=== PATIENT | male | born 1940 | race Two or more races ===

== ENCOUNTER 2024-11-26 05:09 | Emergency (ER) | payer OTHER, SELFPAY ==
[2024-11-26 05:15] VITALS: BP 124/62; BP 169/92; PULSE 74; PULSE 89; RESP 17; TEMP 37.1; O2SAT 98; O2SAT 99; BMI 22.6
--- NOTE | 2024-11-26 05:28 | ED_ITS ---
HPI - General Adult General Chief complaint: Altered Mental Status Stated complaint: ams lost Time Seen by Provider: 11/26/24 05:15 Source: EMS Mode of arrival: EMS Limitations: other History of Present Illness ED Provider: Dr. Karon Rivera HPI narrative: Patient comes to the emergency room via ambulance. Patient walked into [facility] in [place]. Patient was wandering around his neighborhood and he got lost. They called EMS and they brought him to emergency room. Patient's seems to have history of dementia. Patient has no complaints, states he feels well. Patient remembers the name of his sister but does not know what her phone number is. EMS found in his wallet his city driver's license. According to EMS, police department is going to the patient's residence to see if anyone answers the door. Also, here in the emergency room, we found a small health care proxy forearm, stating that the patient is a [employer] and patient is not to receive any blood, also, there is a phone number of a lady by the name of Natalie Sandhu ([phone]) and secondary contact Koby Sandhu ([phone]). According to the patient, Natalie is his sister. However, states that Koby is her daughter's . Unclear if Natalie is the patient's sister versus daughter. Related Data Allergies Allergy/AdvReac Type Severity Reaction Status Date / Time Unable to Assess Allergy Verified 11/26/24 05:22 Review of Systems Review of Systems: Constitutional : No Weight loss, No Fever, No Chills, No Night Sweats, No Fatigue, No Malaise ENT/Mouth : No Hearing loss, No Ear Pain, No Nasal Congestion, No Sinus Pain, No Hoarseness, No sore throat, No Rhinorrhea, No Swallowing Difficulty Eyes: No Eye Pain, No Swelling, No Redness, No Foreign Body, No Discharge, No Vision Changes Cardiovascular : No Chest Pain, No SOB, No Dyspnea on Exertion, No Orthopnea, No Edema, No Palpitations Respiratory : No Cough, No Sputum, No Wheezing, No Smoke Exposure, No Dyspnea Gastrointestinal : No Nausea, No Vomiting, No Diarrhea, No Constipation, No abdominal Pain, No Hematochezia, No Melena Genitourinary : no irregular bleeding, No Dysuria, No Urinary Frequency, No Hematuria, No Urinary Incontinence, No Urgency, No Flank Pain, No Urinary Flow Changes, No Hesitancy Musculoskeletal : No joint pain, No Myalgias, No Joint Swelling Skin : No Skin Lesions, No rash Neuro : No Weakness, No Numbness, No Paresthesias, No Loss of Consciousness, No Dizziness, No Headache Psych : No Anxiety/Panic, No Depression, No SI/HI/AH/VH, No Social Issues, Heme/Lymph: No Bruising, No Bleeding,No Lymphadenopathy Endocrine : No Polyuria, No Polydipsia, No Temperature Intolerance [facility] Past Medical History Medical History (Updated 11/26/24 @ 05:38 by Karon Rivera MD) Dementia Social History Social History Do you have a plan to hurt others: No Plan Physical Exam ED Vital Signs: Vital Signs - 24 hr 11/26/24 05:15 Temperature 98.7 F Pulse Rate 89 Respiratory Rate 17 Blood Pressure 169/92 H Pulse Oximetry 99 Oxygen Delivery Method Room Air BMI result Body Mass Index 22.6 Const Other: Appearance: Alert. Oriented x1. No acute distress. Eyes: Pupils equal, round and reactive to light. ENT: Pharynx normal. Neck: Normal inspection. Neck supple. No lymph nodes noted. No crepitus CVS: Normal heart rate and rhythm. Pulses normal. Normal S1 and S2 Respiratory: No respiratory distress. Breath sounds normal. No Wheezing. No rales Abdomen: Soft and nontender. No rigidity. No distention. Skin: Skin warm and dry. Normal skin color. Normal skin turgor. Extremities: No lower extremity edema. No Lacerations. No Rash Neuro: Oriented X 1. No motor deficit. No sensory deficit. Moving all extremities. No slurred speech. CN 2 through 12 grossly intact Psych: calm, cooperative, normal affect Course Course Course Narrative: Patient is well-appearing, does not seem to be hurt, clean Urinalysis pending At this time, we will hold off on any labs. I tried calling patient's contacts, Natalie Sandhu and Koby Sandhu, neither 1 picked up the phone. We will try again. Patient is calm, cooperative, has no complaints. Watching TV and about to eat some snacks I was able to get in touch with the patient's daughter Natalie Sandhu, who is currently in [place]. She informed me that her sister Mamta Key ([phone]) is here in [place] and the patient is staying with her. I was able to get in touch with Mamta who is the patient's other daughter. She was very distressed when I informed her that her that was here in the hospital. She was completely unaware that he wandered out of the house. She is on the way to the hospital to pick him up. I informed the patient's daughter that her that is well-appearing and is safe. The daughters confirmed that the patient has history of dementia. Discharge Plan Discharge Clinical Impression: Dementia Patient Disposition: Home, Self-Care Instructions: Dementia (ED) Additional Instructions: Please follow-up with your primary care physician tomorrow. If you have any worsening or new symptoms, please return to the emergency room or call 911
[2024-11-26 06:12] VITALS: BP 156/83; PULSE 84; RESP 16; TEMP 36.9; O2SAT 97
--- NOTE | 2024-11-26 06:13 | MHC.EDTECH ---
Patient was biba ,vitals taken ,Patient had snacks ,Patient daughter here to take him home .
[2024-11-26 06:20] VITALS: BP 156/83; PULSE 84; RESP 16; TEMP 36.9; O2SAT 97
== END 2024-11-26 06:25 | disposition home or self-care (01) ==
PROVIDERS: Emergency Provider Emergency Medicine
DX: R41.0 Disorientation, unspecified (principal); F03.90 Unspecified dementia, unspecified severity, without behavioral disturbance, psychotic disturbance, mood disturbance, and anxiety
CPT/HCPCS: 99283; 99284

== ENCOUNTER 2024-12-01 09:53 | Outpatient (REF) | payer OTHER, SELFPAY ==
--- OUTSIDE RECORDS SUMMARY | 2024-12-01 10:29 | XMS_ITS | Data [employer] ---
Author Organization [employer] [place] [facility] Address [address] [place] [id number] Care Team Providers Care Coagulant Dipper Name Role Phone HIM CCA Referring Provider Assessment Encounter Date Assessment Date Assessment LastModified by Organization Details LastModified Time 09/23/2022 09/23/2022 I provided real -time medical direction via phone for this encounter, and was available for additional phone based assistance as needed. I have reviewed and agree with the Assessment and Plan as documented by the Drophammer Operator. Patient given the opportunity to ask questions. See history provided above. See pictures provided by air hole driller who is in the patient's home. Clearly demarcated area of questionable cellulitis. There appears to be some vannesa pus drainage per air hole driller exam. It is unclear from pictures how deep the wound is and air hole driller is unable to gauge depth of the patient's wound. His daughter is been doing excellent job with taking care of the wound and it does appear very clean and dry. I will prescribe Keflex and have wound care start services in regards to dressing applications. He will continue to keep the leg elevated and should there be any worsening of the erythema I have asked him and his family to call his primary care provider immediately. Not available 09/23/2022 20:02:20 08/11/2023 08/11/2023 As noted, we wer e called to see this patient regarding concerns of COVID. Evaluation in the field was performed by my air hole driller colleague, as noted above, I provided real-time direction and supervision for this visit. The evaluation revealed the patient was seen by Josue yesterday and was stable, diagnosed with COVID, started on paxlovid. Today, seems lethargic, less alert. Vitals notable for hypotension Exam notable for limited interaction, just watching TV. Impression: hypotension, possible sepsis in 82yo man with recent covid diagnosis Plan: 1L IVF and 1g CTX now, send to ED We discussed the situation and I recommended referral to the emergency department. This was based on hypotension camilajuan alberto Not available 08/11/2023 16:38:20 11/23/2024 11/23/2024 I provided real -time medical direction via phone for this encounter and was available for additional phone-based assistance as needed. I have reviewed and agree with the Assessment and Plan as documented by the Drophammer Operator. Patient given the opportunity to ask questions. Our service contacted for an assessment of: Fall As per above, patient initiated a shower today which she normally has helped for and had a fall. He denies head strike. He did hit his back and has to abrasions. His daughter called to have him evaluated. He denies any pain currently. He denies shortness of breath, chest pain, dyspnea on exertion. He also denies any syncope or near-syncope and he had no prodrome. Per air hole driller on the scene, Vital signs are stable and the patient is afebrile. Patient is not orthostatic. Please see uploaded pictures. Impression: Status post fall with abrasions. Appears to be mechanical and there was no head strike. Plan: Reassurance given. Patient currently denies pain. There is no evidence it is related to blood pressure or orthostatics. Volume status reassuring. Red flags discussed. Allergies: Reviewed PCP f/u: We discussed the diagnostic uncertainty of home visits and the risk associated with this. In this case, the patient and I felt this to be an acceptable and reasonable amount of risk given the benefit of avoiding an ED visit. We discussed the need to seek care urgently/emergentl y in the setting of any new or worsening serious symptoms, particularly fever chills lightheadedness altered mental status Not available 11/23/2024 21:46:53 Plan of Treatment Reminders Order Date Submit Date Provider Last Modified By Organization Details Last Modified Time Details Appointments None recorded. Lab None recorded. Referral wound care referral 2022 023 RACHNA Not available 05:01:19 Procedures None recorded. Surgeries None recorded. Imaging None recorded. Medication Orders lactated Ringers intravenous solution [address] [id number], [address], [place], [id number], 4 14:47:46 ceftriaxone 1 gram intravenous solution 2023 024 dinoidjuan alberto [facility] #[id number], [address], [place], [id number], 4 14:47:46 Paxlovid 300 mg (150 mg x 2)-100 mg tablets in a dose pack 2023 024 [facility] #[id number], [address], [place], [id number], 4 15:41:40 cephalexin 500 mg tablet 2022 023 [facility] #[id number], [address], [place], [id number], 3 19:59:51 Patient TargetsNo targets recorded. Patient InstructionsNo instructions recorded. Reason for Referral Referring Physician: Zarina yee, Urgent Care, null Encounter Date: 09/23/2022 Medical Equipment None Reported. Allergies No known drug allergies Medications Name Sig Start Date Stop Date Status Note LastModified by Organization Details LastModified Time atorvastatin 10 mg tablet TAKE 1 TABLET BY MOUTH DAILY active Not Available Not Available Not Available lisinopril 20 mg tablet TAKE 1 TABLET BY MOUTH EVERY DAY active Not Available Not Available No t Available aspirin 81 mg tablet,delay ed release TAKE 1 TABLET BY MOUTH EVERY DAY active Not Available Not Available No t Available pantoprazole 20 mg tablet,delay ed release TAKE 1 TABLET BY MOUTH TWICE DAILY active Not Available Not Available No t Available famotidine 20 mg tablet TAKE 1 TABLET BY MOUTH TWICE DAILY active Not Available Not Available No t Available tamsulosin 0.4 mg capsule TAKE 1 CAPSULE BY MOUTH EVERY DAY 30 MINUTES AFTER THE SAME MEAL active Not Available Not Available No t Available cephalexin 500 mg capsule TAKE 1 CAPSULE BY MOUTH EVERY 6 HOURS FOR 10 DAYS DIRECTED active Not Available Not Available No t Available cephalexin 500 mg tablet Take 1 tablet every 6 hours by oral route as directed for 10 days. 2022 active Not Available Not Available Not Avai lable naproxen 500 mg tablet TAKE 1 TABLET BY MOUTH TWICE DAILY WITH MEALS active Not Available Not Available No t Available cyclobenzapr ine 5 mg tablet TAKE 1 TABLET BY MOUTH THREE TIMES DAILY NEEDED FOR MUSCLE SPASMS active Not Available Not Available No t Available diclofenac 1 % topical gel APPLY 4 GRAMS TOPICALLY FIVE TIMES DAILY active Not Available Not Available No t Available Metamucil Fiber (aspartame) 3.4 gram oral powder packet MIX AND DRINK 1 PACKET BY MOUTH 2 TIMES A DAY DIRECTED. active Not Available Not Available No t Available Stimulant Laxative Plus 8.6 mg-50 mg tablet TAKE 1 TABLET BY MOUTH 2 TIMES NEEDED FOR CONSTIPATIO N. active Not Available Not Available No t Available Paxlovid 300 mg (150 mg x 2)-100 mg tablets in a dose pack TK 2 NIRMATRELVI R TS AND 1 RITONAVIR T TOGETHER PO BID FOR 5 DAYS active Not Available Not Available No t Available Vitals Date Recorded Respiratory rate Body temperature Oxygen saturation Oxygen saturation in Arterial blood by Pulse oximetry Heart rate Systolic blood pressure Diastolic blood pressure Provider Name and Address Organization Details Last Updated DateTime 4 18 /min 98.6 [degF] 97 % 97 % 85 /min 150 mm[Hg] 90 mm[Hg] Not Available [facility] 4 15:31:00 Date Recorded Respiratory rate Heart rate Body weight Body height Body temperature Oxygen saturation Oxygen saturation in Arterial blood by Pulse oximetry Systolic blood pressure Diastolic blood pressure Systolic blood pressure Diastolic blood pressure Provider Name and Address Organization Details Last Updated DateTime 4 16 /min 76 /min 43011.6 8 g 165.1 cm 98.2 [degF] 96 % 96 % 88 mm[Hg] 56 mm[Hg] 106 mm[Hg] 69 mm[Hg] Not Available [facility] 4 17:58:48 Date Recorded Body temperature Oxygen saturation Oxygen saturation in Arterial blood by Pulse oximetry Body weight Respiratory rate Heart rate Systolic blood pressure Diastolic blood pressure Provider Name and Address Organization Details Last Updated DateTime 3 98 [degF] 97 % 97 % 33002.6 4 g 16 /min 84 /min 156 mm[Hg] 86 mm[Hg] Not Available [facility] 3 19:55:17 Date Recorded Heart rate Respiratory rate Body temperature Oxygen saturation Oxygen saturation in Arterial blood by Pulse oximetry Systolic blood pressure Diastolic blood pressure Provider Name and Address Organization Details Last Updated DateTime 5 63 /min 18 /min 97.8 [degF] 98 % 98 % 129 mm[Hg] 86 mm[Hg] Not Available [facility] 5 17:08:50 Date Recorded Heart rate Respiratory rate Body temperature Body weight Oxygen saturation Oxygen saturation in Arterial blood by Pulse oximetry Systolic blood pressure Diastolic blood pressure Provider Name and Address Organization Details Last Updated DateTime 4 72 /min 16 /min 98.2 [degF] 90907.8 g 98 % 98 % 144 mm[Hg] 84 mm[Hg] Not Available [facility] 4 16:41:30 Social History None recorded. Functional Status None recorded. Mental Status None recorded. Family History Nothing Reported. Medical History No medical history recorded. Past Encounters Encounter ID Performer Location Encounter Start Date Encounter Closed Date Diagnosis/Indication Diagnosis SNOMED-CT Code Diagnosis ICD10 Code Diagnosis Note [id number] Lluvia Sal MD [facility] [address] [place] [id number] 07/09/2022 11:31:27 07/11/2022 12:24:19 Influenza-like symptoms [id number] R68.89 81 year old male, recently diagnosed with influenza last week, being evaluated for ongoing symptoms. Patient reports continued cough and low appetite, with reduced PO intake, no significan t respirator y symptoms. Patient without new fevers. Exam notable for normal vital signs, dry mucus membranes, course crackles on lung exam, and normal mental status. Etiology consistent with ongoing recovery from influenza, low suspicion for superimpos ed bacterial infection or new COVID infection given no new symptoms and absent fevers since symptoms initially began last week. Urged to continue supportive care with OTC products and PO fluids as tolerated. Given reduced PO intake, patient and family interested IV fluids - while vital signs do not suggest dehydratio n and patient is not on a beta sherwin, 500 cc bolus given per patient request. Continue to monitor symptoms and FU if new fever or unable to tolerate PO fluids in coming days. [id number] Zarina Cagle MD [facility] [address] [place] [id number] 09/23/2022 19:55:03 09/25/2022 09:53:02 Cellulitis of lower limb [id number] L03.119 [id number] Sagar Angel MD [facility] [address] [place] [phone] 08/10/2023 15:30:57 08/11/2023 13:14:08 COVID-19 [id number] U07.1 This 82-year-ol d male was diagnosed with COVID-19 today. He doesn't have any contraindi cations to using Paxlovid. I discussed treatment including Paxlovid which was called to his pharmacy. He will follow-up with his PCP. The patient agreed with this plan. RENE NEGRETE MD [facility] [address] [place] [phone] 08/11/2023 14:18:37 08/12/2023 10:34:46 Hypotensive episode [id number] I95.9 [id number] RYAN KLEIN MD [facility] [address] [place] [id number] 04/15/2024 16:41:19 04/15/2024 17:39:22 Contusion of left knee [id number] S80.02XA Evaluation in the field was performed by my air hole driller colleague, as noted above, I provided real-time direction and supervisio n for this visit. The evaluation revealed an 83-year-ol d male who fell while sitting down and twisting to the side. He denies dizziness or lightheade dness, indicating a mechanical fall. His daughter is concerned about his left knee, which appears red but not swollen. He did not hit his head and is not on blood thinners. The daughter has not applied ice or heat, as she is concerned about his varicose veins. The patient denies chest pain, shortness of breath, nausea, vomiting, or diarrhea. He is tolerating oral intake well, and his mental status is at baseline. Vital signs are stable.The left knee has full range of motion , with no ecchymosis or abrasions. There is mild redness and a contusion on the left kneecap.Al lergies were reviewed. Impression :Contusion of the left knee Plan:-Cold compresses recommende d to help prevent swelling.- May use Tylenol 1000 mg every 8 hours as needed.-Re d flags were discussed with the daughter. Primary care, consider__ _ Dispositio n: We discussed the diagnostic uncertaint y of home visits and the risk associated with this. In this case, the patient and I felt this to be an acceptable and reasonable amount of risk given the benefit of avoiding an ED visit. We discussed the need to seek care urgently/e mergently in the setting of any new or worsening serious symptoms, particular ly left knee pain especially with ambulation , inability to bear weight, swelling of the knee, weakness fever, chill, CP, SOB or any other concerns. [id number] Zarina Cagle MD [facility] [address] [place] [phone] 11/23/2024 17:08:46 11/24/2024 07:04:45 History of fall [id number] Z91.81 Health Concerns Section Related Observation LastModified by Organization Detai ls LastModified Time None Recorded Concern Status LastModified by Organization Details LastModified Time None Recorded Advance Directives Directive None Recorded Payers Insurance Date Sequence Insurance Name Policy Number Policy Wahl Covered Member ID Wahl Member ID Guarantor Name 08/10/2023 1 [facility] - DOS PRIOR TO 2022 - DUAL ELIGIBLE (MEDICARE REPLACEMENT/ADV ANTAGE - HMO) Amos Thompson [id number] Amos Thompson 11/23/2024 1 [facility] - DOS ON OR AFTER 2022 - DUAL ELIGIBLE - CUSTODIAL OPTIONS AND ONE CARE (MEDICARE REPLACEMENT/ADV ANTAGE - HMO) Amos Thompson [id number] Amos Thompson Notes Date Note Type Note Provider Name and Address Organization Details Recorded Time 09/23/2022 text/html [facility] Nursing Assessment: Reason For Request: Leg wound Chief Complaints: Wound Care PMH: Hypertension Allergies: Unknown Comments: Members daughter calling to place a referral, member identified via /name. Per daughter member had a scratch on his leg last week, she was cleansing and putting a band aide. She had ran out of band aides, she had some gauze and medical tape, however, some of the tape adhered to healthy skin. When member went to remove in the next morning, the tape took the good skin off. Per daughter scratch is healed, but the area where the tape removed skin is open, draining yellow fluid, there is also erythema around it, denies warmth or swelling to leg. Denies fever/chills. Would like to have leg assessed. ..................... ..................... ..................... ..................... ..................... ..................... ............... Drophammer Operator Note From : pt presents with pain and wound in right lower extremity . daughter on scene states the pt had a cut on his leg that she used gauze and medical tape to cover up, when the gauze and tape was removed the tape had taken some of the pt's skin off, leaving a new wound. daughter has been trying to keep the wound clean with hydrogen peroxide and bandaids but it has not healed. Daughter has left the wound in the open for the past three days to dry it out as it kept looking wet for the past week. wound is dark in color with pus draining from it, redness around the wound almost circumferencing the leg. wound is not warm to the touch. pt denies f/n/v/d pt has no other complaints to report. pictures taken of the wound and shared with [facility] [facility] [place] and abx sent to pharmacy for pt as well as a referral for wound care. Written by Diogenes Willams ..................... ..................... ..................... ..................... ..................... ..................... ............... Disposition: Fulfilled Zarina Cagle MD [address] [facility], [place], [phone], [employer] 09/23/2022 20:02:40 08/10/2023 text/html [facility] Nurse Triage Notes (Rangel Hobbs): Chief Complaints: URI PMH: Hypertension Allergies: Unknown Comments: Mushroom Farmer verified the member's name//address and phone number - Education provided on the response time and the member was advised to monitor reported s/s and seek emergency treatment if needed. CG reports the member is feeling unwell and tested Positive for COVID this AM - Cough/cold and congestion - Denies fever and SOB - Denies N/V. Caretakers are positive as well Sagar Angel MD [address] [facility],[address], [place], [phone], [employer] 08/10/2023 15:41:55 08/11/2023 text/html [facility] Nurse Triage Notes (Rangel Hobbs): Reason For Request: Was seen by [facility] Yesterday tested positive for covid>weakness, does not want to drink anything and fear of dehydration Chief Complaints: Dehydration, Weakness/Lethargy PMH: Hypertension Allergies: No Known Comments: Mushroom Farmer verified the member's name//address and phone number - Education provided on the response time and the member was advised to monitor reported s/s and seek emergency treatment if needed. Member was seen by [facility] yesterday and tested positive for COVID - Member s/s remain the same and continues to feel weak - Decreased PO intake - CG is concerned about dehydration - Wellness check requested ..................... ..................... ..................... ..................... ..................... ..................... ............... Drophammer Operator Note From Anibal Spencer: [facility] visit for male patient who tested positive for COVID yesterday. Pt's daughter and caregiver called today concerned about possible dehydration given poor PO intake since yesterday. Pt presents conscious and alert sitting in recliner at home watching television. Daughter reports pt was started on paxlovid this morning, and has been taking that in addition to tylenol and mucinex. Vital signs taken with pt noted to be hypotensive. Daughter states patients blood pressure is normally high and hasn't even taken his lisinopril yet today. Daughter states pt also seems more weak than normal, in addition to increased confusion on top of baseline dementia/confusion. Consulted with [facility] Dr. Kam who stated pt will likely need to be seen in ED but can start with 500 cc fluid bolus and then recheck of pressures. IV established and fluid bolus given with small improvement. Spoke with Dr. Kam again who said to give another 500 cc of lactated ringers in addition to 1 gram of ceftriaxone, both administered on scene. Dr. Kam still wanted pt seen in ED so spoke with daughter who agreed. 911 called with [facility] B[facility] unit arriving on scene. Pt extricated with smart[facility] medic assuming care throughout transport. Pt brought to [facility] ED Delta [facility] room 3. Report given to RN Juliette Lake. Care transferred to [facility]. [facility] Medication Orders: lactated Ringers intravenous solution: Administered ceftriaxone 1 gram intravenous solution: Administered ..................... ..................... ..................... ..................... ..................... ..................... ............... Disposition: Fulfilled RENE NEGRETE MD [address] [facility], [place], [phone], [employer] 08/11/2023 18:24:14 04/15/2024 text/html [facility] Nurse Triage Notes (Rohan Eunice): Reason For Request: Pt's Daughter aris reporting a fall Chief Complaints: Falls PMH: Hypertension, Other Allergies: No Known Comments: Mushroom Farmer verified the member's name//address and phone number. Member is a 83 yr old male PMH >HTN/ mild dementia / HLD / ACID reflex Allergies >NKDA Pt's daughter called , he fell while he was sitting down and twisted to the side. She is concerned with his left knee, as the area is red, not swollen. He did not hit his head, she is aware we do not offer xrays but still wanted the visit. She has not put ice or heat on it as she is concerned that he has varicose veins Education provided on the response time and the member was advised to monitor reported s/s and seek emergency treatment if needed ..................... ..................... ..................... ..................... ..................... ..................... ............... Drophammer Operator Note From Durga Newman: Pt daughter wanted pt left knee assessed after a fall earlier today. daughter sts patient went to sit down in shower chair and fell hitting his left knee. Denies contusions abrasions. or lacerations. Denies Head neck or back pain or injury. Denies headache, dizziness, CP,SOB, Abdominal pain or NVD. Baseline vitals assessed, WNL. Afebrile. Pupils equal round and reactive. Left knee assessed, No edema, redness, or trauma visible. Pt had full ROM. [facility] contacted and advised ice and Tylenol if needed for pain. Education provided on signs indicating the ER. ..................... ..................... ..................... ..................... ..................... ..................... ............... Disposition: Emily RYAN KLEIN MD [address] [facility],[address], [place], [phone], [employer] 04/15/2024 17:15:29 11/23/2024 text/html [facility] Nurse Triage Notes (Hattie Matthews): Reason For Request: Patient fell, no pain but wants checked out. Denies: Falls with head strike and LOC Falls from a standing position, no LOC, patient is amnestic to the event Falls with isolated injury and deformity noted to limb Falls with inability to move post fall Cool extremities after fall or injury Chief Complaints: Falls PMH: Hypertension, Hyperlipidemia PMH Reviewed at 11/23/2024:18 Allergies Reviewed at 11/23/2024:18 Comments: 83 y.o male complains of Falls Patients daughter calling in to place a referral. Patient fell about 30 minutes ago in the shower, refusing ED. Patient denies head strike, no LOC and does not take any blood thinners. Daughter denies any bumps, bruising or swelling any where, he is able to move all extremities. He has no confusion. Her concern is his back, he has a streak, where she think the water spout gave him like a rug burn . She would like him evaluated. I provided information on the mobile health provider response time and advised the patient and/or caregiver to monitor reported signs and symptoms. I discussed the warning signs of when to seek emergency care. ..................... ..................... ..................... ..................... ..................... ..................... ............... Drophammer Operator Note From Kelly Ml: Sent to a call for a pt who fell. [facility] arrives on scene, pt is alert and confused at baseline. Pt's daughter states pt had a fall approx 1-1.5hrs ago while in bath tub. Daughter states pt was sitting in shower chair and fell, hitting back on shower faucet. Daughter denies head strike/loc. Daughter states she wasn't in bathroom at time of fall because pt prefers to shower alone. Daughter states she went in the moment she heard the fall. Pt has no complaints. Daughter states pt has wilkinson on back from fall, but pt sometimes has difficulty expressing pain. Picture of right side affected back: uploaded to [facility]. Pt denies any pain. Pt was given Tylenol 1gm PO prior to visit. Pt's daughter states she just wanted pt's fall and evaluation on record. BP:129/86, P:63, RR:18, SpO2:98% RA, T:97.8; Neuro exam: neg; Head: unremarkable; Lung sounds: clear bilaterally; Abdomen: soft, non-tender, no distention; Back: red wilkinson on right side back, no tenderness or other deformities noted; Extremities: unremarkable; Skin: pink, warm, dry; [facility] consulted and has no orders. Pt daughter advised to monitor pt and contact [facility] if pt condition changes/worsens. Red flags discussed. Pt's daughter has no further questions. ..................... ..................... ..................... ..................... ..................... ..................... ............... [facility] Consulted: Zarina Cagle ..................... ..................... ..................... ..................... ..................... ..................... ............... Disposition: Fulfilled Zarina Cagle MD [address] [place] [address],[address], [place], [address], TAMRA - PEYMAN BECK 11/23/2024 21:47:05
[2024-12-01 12:20] LABS: Vitamin B12 412 pg/mL (200-900)
[2024-12-02 04:09] LABS: Syphilis Screen Nonreactive (Nonreactive)
== END 2024-12-01 09:54 | disposition home or self-care (01) ==
LOC: HO.LAB 09:53
PROVIDERS: PCP Internal Medicine; Visit Provider Psychiatry & Neurology Neurology
DX: G31.83 Neurocognitive disorder with Lewy bodies (principal)
CPT/HCPCS: 36415; 82607; 86780